=== PATIENT | female | born 1970 | race Two or more races ===

== ENCOUNTER 2024-05-13 17:15 | Emergency (ER) | payer BC ==
[~2024-05-13] VITALS: Ht 165.1 cm; Wt 99.8 kg
[2024-05-13] MEDS ORDERED: XANAX0.25 MG (17:44)
[2024-05-13] MEDS ORDERED: LORazepam 2 MG/ML VIAL IM ONE (18:00)
== END 2024-05-13 19:14 | disposition home or self-care (01) ==
LOC: ER 17:15
DX: F41.9 Anxiety disorder, unspecified (principal); Z88.0 Allergy status to penicillin